=== PATIENT | female | born 1995 | race American Indian/Alaskan Native ===

== ENCOUNTER 2017-05-24 08:17 | Emergency (ER) | payer OTHER ==
[2017-05-24] MEDS ORDERED: PEPCID IV ONE (09:14)
[2017-05-24] MEDS ORDERED: BENADRYL IV ONE (09:15)
--- NOTE | 2017-05-24 09:15 | Emergency Department Report ---
ED Allergic Reaction HPI - General Chief complaint: Allergic Reaction Stated complaint: ALLERGIES Time Seen by Provider: 05/24/17 09:14 Source: patient Mode of arrival: Ambulatory Limitations: No Limitations - History of Present Illness Initial Comments: 21-year-old female past medical history multiple food and medication allergies, asthma presents with complaint of nasal congestion and seasonal allergies. Patient states that since last night at approximately 12:00 at night patient began experiencing some eye swelling. Became progressively worse and she took Benadryl at home with some moderate relief of itching and swelling. Patient denies fever or chills. 1 eye irritation became unbearable patient decided to come to the ED. As per patient and boyfriend at bedside swelling has improved significantly since last night. Patient speaking in full sentences has no audible wheezing or stridor. No visible tongue or lip swelling. Patient denies any difficulty breathing whatsoever. Has normal voice as per her boyfriend at bedside. Speaking in full sentences. No diffuse hives noted. Patient states she is taking Zyrtec at home for seasonal allergies. Patient denies contact with any of her known allergens new cosmetics new pets or new foods. Patient denies any trauma to face denies anything hitting her eyes or splashing into her eyes does not wear contact lenses. MD Complaint: allergic reaction, facial swelling -: During the night, Last night Exposure: unknown, other (seasonal allergies) Symptoms: facial swelling (eyelid swelling) Severity: mild Treatment Prior to Arrival: benadryl Previous Allergy History: none - Related Data Previous Rx's Medication Instructions Recorded Last Taken Type EPINEPHrine [Epipen] 0.3 mg IJ ONCE PRN #1 auto.injct 05/24/17 Unknown Rx Famotidine [Pepcid] 20 mg PO BID PRN #30 tablet 05/24/17 Unknown Rx Prednisone [predniSONE 10 mg 10 mg PO .TAPER #1 tab.ds.pk 05/24/17 Unknown Rx (6-Day Pack, 21 Tabs)] diphenhydrAMINE [Benadryl CAP] 25 mg PO Q8HR PRN #30 capsule 05/24/17 Unknown Rx Allergies Allergy/AdvReac Type Severity Reaction Status Date / Time banana Allergy Swelling Verified 05/24/17 08:35 winters Allergy Hives Verified 05/24/17 08:35 grape Allergy Rash Verified 05/24/17 08:35 grapefruit Allergy Swelling Verified 05/24/17 08:35 kiwi Allergy Swelling Verified 05/24/17 08:35 jacquelin Allergy Rash Verified 05/24/17 08:35 melon Allergy Vomiting Verified 05/24/17 08:35 orange Allergy Swelling Verified 05/24/17 08:35 peach Allergy Hives Verified 05/24/17 08:35 Penicillins Allergy Rash Verified 05/24/17 08:35 pineapple Allergy Swelling Verified 05/24/17 08:35 plum Allergy Rash Verified 05/24/17 08:35 pork derived (porcine) Allergy Hives Verified 05/24/17 08:35 strawberry Allergy Bleeding Verified 05/24/17 08:35 Sulfa (Sulfonamide Allergy Unknown Verified 05/24/17 08:35 Antibiotics) cantelop Allergy Swelling Uncoded 05/24/17 08:35 green apples Allergy Vomiting Uncoded 05/24/17 08:35 honey dew Allergy Itching Uncoded 05/24/17 08:35 nectarine Allergy Hives Uncoded 05/24/17 08:35 tangerine Allergy Hives Uncoded 05/24/17 08:35 ED Review of Systems ROS: Stated complaint: ALLERGIES Other details as noted in HPI Constitutional: denies: chills, fever Eyes: denies: eye pain, eye discharge, vision change ENT: denies: ear pain, throat pain Respiratory: denies: cough, shortness of breath, wheezing Cardiovascular: denies: chest pain, palpitations Endocrine: no symptoms reported Gastrointestinal: denies: abdominal pain, nausea, diarrhea Genitourinary: denies: urgency, dysuria, discharge Musculoskeletal: denies: back pain, joint swelling, arthralgia Skin: denies: rash, lesions Neurological: denies: headache, weakness, paresthesias Psychiatric: denies: anxiety, depression Hematological/Lymphatic: denies: easy bleeding, easy bruising ED Past Medical Hx - Past Medical History Previous Medical History?: Yes Hx Asthma: Yes Additional medical history: multiple allergies. muscle spams. electrolytes drop - Surgical History Past Surgical History?: No - Social History Smoking Status: Never Smoker Substance Use Type: Alcohol - Medications Home Medications: Home Medications Medication Instructions Recorded Confirmed Last Taken Type EPINEPHrine [Epipen] 0.3 mg IJ ONCE PRN #1 auto.injct 05/24/17 Unknown Rx Famotidine [Pepcid] 20 mg PO BID PRN #30 tablet 05/24/17 Unknown Rx Prednisone [predniSONE 10 mg 10 mg PO .TAPER #1 tab.ds.pk 05/24/17 Unknown Rx (6-Day Pack, 21 Tabs)] diphenhydrAMINE [Benadryl CAP] 25 mg PO Q8HR PRN #30 capsule 05/24/17 Unknown Rx ED Physical Exam - General Limitations: No Limitations General appearance: alert, in no apparent distress - Head Head exam: Present: atraumatic, normocephalic - Eye Eye exam: Present: normal appearance, PERRL, EOMI, periorbital swelling - Expanded Eye Exam Expanded Eyelids: Swelling: Bilateral (some bilateral eyelid swelling, patient is still able to open eyes) Pupils: Regular, Round: Bilateral (he pulls are equally reactive to light bilaterally), Reactive: Bilateral Sclera/Conjunctival: Normal Inspection: Bilateral Visual acuity (R) = 20/: 20 Visual acuity (L) = 20/: 20 - ENT ENT exam: Present: normal orophraynx (oropharynx is open and patent no difficulty breathing swelling noted on exam), mucous membranes moist - Neck Neck exam: Present: normal inspection - Respiratory Respiratory exam: Present: normal lung sounds bilaterally. Absent: respiratory distress - Cardiovascular Cardiovascular Exam: Present: regular rate, normal rhythm. Absent: systolic murmur, diastolic murmur, rubs, gallop - GI/Abdominal GI/Abdominal exam: Present: soft, normal bowel sounds - Extremities Exam Extremities exam: Present: normal inspection - Back Exam Back exam: Present: normal inspection - Neurological Exam Neurological exam: Present: alert, oriented X3 - Psychiatric Psychiatric exam: Present: normal affect, normal mood - Skin Skin exam: Present: warm, dry, intact, normal color. Absent: rash ED Course Vital Signs 05/24/17 05/24/17 05/24/17 08:35 09:52 10:37 Temperature 98.8 F Pulse Rate 57 L 66 Respiratory 16 20 18 Rate Blood Pressure 133/86 111/69 O2 Sat by Pulse 98 99 100 Oximetry ED Medical Decision Making - Medical Decision Making A/P: Allergic reaction, allergic rhinitis 1-prednisone Dosepak, Benadryl when necessary, advised patient to continue taking Claritin or Zyrtec as she is currently doing, Pepcid when necessary 2-no clinical signs of worsening angioedema difficulty breathing wheezing or stridor. Vital signs are stable including O2 sat. There is no tongue or lip swelling on the clinical exam 3-Case discussed with before dc 4-I specifically advised patient to return to the ED for any difficulty breathing, tongue swelling, lip swelling, shortness of breath or worsening facial swelling. I provided her with prescription for EpiPen and events of worsened angioedema Critical care attestation.: If time is entered above; I have spent that time in minutes in the direct care of this critically ill patient, excluding procedure time. ED Disposition Clinical Impression: Allergic reaction Qualifiers: Encounter type: initial encounter Qualified Code(s): T78.40XA - Allergy, unspecified, initial encounter Swelling of eyelid Qualifiers: Laterality: unspecified laterality Qualified Code(s): H02.849 - Edema of unspecified eye, unspecified eyelid Disposition: DC-01 TO HOME OR SELFCARE Is pt being admited?: No Does the pt Need Aspirin: No Condition: Stable Instructions: Angioedema (ED), Allergies (ED), Epinephrine (Injection) Prescriptions: diphenhydrAMINE [Benadryl CAP] 25 mg PO Q8HR PRN #30 capsule PRN Reason: Allergic Reaction EPINEPHrine [Epipen] 0.3 mg IJ ONCE PRN #1 auto.injct PRN Reason: Angioedema Famotidine [Pepcid] 20 mg PO BID PRN #30 tablet PRN Reason: Allergic Reaction Prednisone [predniSONE 10 mg (6-Day Pack, 21 Tabs)] 10 mg PO .TAPER #1 tab.ds.pk Referrals: [facility] [place] [Outside] - 3-5 Days [facility] [Outside] - 3-5 Days Forms: Accompanied Note, Work/School Release Form(ED) Time of Disposition: 10:51
[2017-05-24 10:47] VITALS: BP 111/69
== END 2017-05-24 11:26 | disposition home or self-care (01) ==
LOC: ED 08:17
DX: T78.40XA Allergy, unspecified, initial encounter (principal); H02.849 Edema of unspecified eye, unspecified eyelid; J45.909 Unspecified asthma, uncomplicated; Z88.0 Allergy status to penicillin; Z88.2 Allergy status to sulfonamides; Z88.8 Allergy status to other drugs, medicaments and biological substances; Z91.018 Allergy to other foods; X58.XXXA Exposure to other specified factors, initial encounter; Y93.89 Activity, other specified; Y99.8 Other external cause status; Y92.89 Other specified places as the place of occurrence of the external cause
CPT/HCPCS: 96374; 96375; 99282; J1200; J2930